=== PATIENT | male | born 1985 | race Hispanic/Latino ===

== ENCOUNTER 2024-06-05 10:42 | Inpatient (IN) | payer SELFPAY ==
[~2024-06-05 10:42] MED LIST: Iopamidol 300 61% 100 ML VIAL FS ONE
[2024-06-05] MEDS ORDERED: Ondansetron PF 4 MG/2 ML Vial ONE (12:26)
[2024-06-05] MEDS ORDERED: fentaNYL 50 mcg/mL 1 mL Vial ONE ×4 (12:26→16:26)
[2024-06-05 13:34] LABS: #Basophils 0.02 10x3/uL (0.0-0.2); #Eosinphils 0.08 10x3/uL (0.0-0.5); #Monocytes 0.39 10x3/uL (0.0-1.1); #Neutrophils 2.76 10x3/uL (1.5-8.4); %Basophils 0.5 % (0.0-2.0); %Eosinophils 1.9 % (0.0-6.0); %Lymphocytes 20.8 % (18.0-47.0); %Monocytes 9.4 % (0.0-10.0); %Neutrophils 66.7 % (40.0-75.0); Hematocrit 36.6 % (38.8-50.0); Hemoglobin 11.6 g/dL (13.5-17.5); Mean Corpuscular HGB CONC 31.7 g/dL (32.0-36.0); Mean Corpuscular Hemoglobin 23.8 pg (27.0-33.0); Mean Platelet Volume 9.8 fL (7.4-10.4); Platelet Count 206 10x3/uL (150-450); RBC Distribution Width 14.3 % (11.5-14.5); Red Blood Cell (RBC) Count 4.88 10x6/uL (4.32-5.72); White Blood Cell (WBC) Count 4.1 10x3/uL (3.5-10.5)
[2024-06-05 13:38] LABS: Bilirubin Neg (Negative); Blood, Urine Negative (Negative); Clarity Clear (Clear); Glucose, Urine (Dipstick) >=1000 mg/dL (Negative); Ketone, Urine Negative (Negative); Leukocyte Negative (Negative); Nitrite Negative (Negative); Protein, Urine (Dipstick) 30 mg/dl (Neg-Trace); Urobilinogen Normal mg/dL (Less than 2)
[2024-06-05 14:04] LABS: ALT (SGPT) 26 U/L (8-55); AST (SGOT) 20 U/L (5-34); Alkaline Phosphatase 102 U/L (40-110); Anion Gap 14 mmol/L (10-20); BUN (Urea Nitrogen) 9 mg/dL (8.9-20.6); Bilirubin, Total 0.4 mg/dL (0.2-1.2); Calc. Creatinine Clearance 0 mL/min (70-130); Calcium 9.2 mg/dL (7.8-10.44); Carbon Dioxide 21 mmol/L (22-29); Chloride 106 mmol/L (98-107); Estimated GFR 118; Globulin 3.1 g/dL (2.4-3.5); Glucose 380 mg/dL (70-105); Lipase 19 U/L (8-78); Magnesium 1.8 mg/dL (1.6-2.6); Potassium 4.2 mmol/L (3.5-5.1); Protein, Total 7.1 g/dL (6.0-8.3); Sodium 137 mmol/L (136-145)
[2024-06-05 14:16] LABS: Bacteria/HPF Rare-Few HPF (None Seen); CAUTI Indications for Culture Pelvic or flank pain; RBC/HPF 0-3 HPF (0-3); Squamous Epithelial None Seen HPF (0-3); Urine Culture Reflex No No; WBC/HPF 0-3 HPF (0-3)
[2024-06-05] MEDS ORDERED: Famotidine/PF 20 mg/2ml Vial ONE (15:05)
[2024-06-05 15:58] LABS: Actual Bicarbonate (HCO3v) 20.6 mEq/L (22-28); Analyzer IN Cardio CS ER; Base Excess -4.1 mEq/L (-2 - +2); Calcium, Ionized (venous) 1.13 mmol/L (1.16-1.32); Chloride (VBG) 105 mmol/L (98-106); Hematocrit-VBG 35 % (42.0-52.0); Hemoglobin (Hb) 11.8 g/dL (13.2-17.3); Puncture Site Other Site; RapidComm Collect By CBN; Sodium 139 mmol/L (133-146)
[2024-06-05] MEDS ORDERED: Pantoprazole 40 MG VIAL ONE (16:26)
[2024-06-05] MEDS ORDERED: Acetaminophen 650 MG Suppository PR PRN (17:57)
[2024-06-05] MEDS ORDERED: Ondansetron PF 4 MG/2 ML Vial IVP PRN (17:57)
[2024-06-05] MEDS ORDERED: Ondansetron ODT 4 MG TAB PO PRN (17:57)
[2024-06-05 19:45] VITALS: BMI 27.4
[2024-06-05] MEDS: fentaNYL 50 mcg/mL 1 mL Vial SLOW IVP PRN (20:28)
[2024-06-05] MEDS: Sodium Chloride 0.9% 1,000 ML IV SCH (20:29)
[2024-06-05] MEDS: Acetaminophen 325 MG TAB PO SCH (20:30)
[2024-06-05] MEDS: Pantoprazole 40 MG VIAL IVP SCH (20:30)
[2024-06-06] MEDS: FLU (Fluarix Triv) TS24-25(6MOS UP)/PF 45 MCG/0.5 ML Syringe IM ONE (02:30)
[2024-06-06 04:53] LABS: #Basophils 0.02 10x3/uL (0.0-0.2); #Eosinphils 0.07 10x3/uL (0.0-0.5); #Monocytes 0.36 10x3/uL (0.0-1.1); #Neutrophils 2.38 10x3/uL (1.5-8.4); %Basophils 0.5 % (0.0-2.0); %Eosinophils 1.8 % (0.0-6.0); %Lymphocytes 26.4 % (18.0-47.0); %Monocytes 9.3 % (0.0-10.0); %Neutrophils 61.5 % (40.0-75.0); Hematocrit 31.4 % (38.8-50.0); Hemoglobin 10.1 g/dL (13.5-17.5); Mean Corpuscular HGB CONC 32.2 g/dL (32.0-36.0); Mean Corpuscular Hemoglobin 23.9 pg (27.0-33.0); Mean Corpuscular Volume 74.4 fL (81.2-95.1); Mean Platelet Volume 10.1 fL (7.4-10.4); Platelet Count 188 10x3/uL (150-450); RBC Distribution Width 14.4 % (11.5-14.5); Red Blood Cell (RBC) Count 4.22 10x6/uL (4.32-5.72); White Blood Cell (WBC) Count 3.9 10x3/uL (3.5-10.5)
[2024-06-06 05:08] LABS: Magnesium 1.7 mg/dL (1.6-2.6)
[2024-06-06 05:23] LABS: Anion Gap 13 mmol/L (10-20); BUN (Urea Nitrogen) 5 mg/dL (8.9-20.6); Calc. Creatinine Clearance 192 mL/min (70-130); Calcium 8.3 mg/dL (7.8-10.44); Carbon Dioxide 19 mmol/L (22-29); Chloride 109 mmol/L (98-107); Estimated GFR 122; Glucose 277 mg/dL (70-105); Potassium 3.7 mmol/L (3.5-5.1); Sodium 137 mmol/L (136-145)
[2024-06-06 06:04] LABS: Microcytosis SLIGHT = 6-15 cells (100X) (0-5/hpf); Platelet Adequacy Comment Appears Adequate
[2024-06-06] MEDS ORDERED: fentaNYL 50 mcg/mL 1 mL Vial ONE ×3 (12:32→13:47)
[2024-06-06] MEDS ORDERED: Lidocaine 1% PF 5 ML VIAL ONE (12:50)
[2024-06-06] MEDS ORDERED: PROPOFOL 60 ML ONE (12:51)
[2024-06-06 13:42] LABS: Hemoglobin A1c 12.5 % (4.0-6.0)
[2024-06-06] MEDS ORDERED: Cyclobenzaprine 10 MG TAB PO PRN (16:48)
[2024-06-06 17:29] LABS: Hematocrit 35.9 % (38.8-50.0); Hemoglobin 11.6 g/dL (13.5-17.5)
[2024-06-06] MEDS ORDERED: Dextrose 50% Abboject 50 ML SYRINGE SLOW IVP PRN (18:59)
[2024-06-06] MEDS ORDERED: Glucagon 1 MG/ML KIT IM PRN (18:59)
[2024-06-06] MEDS ORDERED: Dextrose 5% in Water 1,000 ML IV PRN (18:59)
[2024-06-06] MEDS ORDERED: Insulin Regular, Human 100 UNIT/ML 10 ML VIAL SC PRN ×2 (18:59)
[2024-06-06] MEDS: GoLYTELY 4,000 ml Bottle PO SCH (20:09)
[2024-06-06] MEDS: Lidocaine 4% Patch TD SCH (20:10)
[2024-06-07 05:29] LABS: #Basophils 0.01 10x3/uL (0.0-0.2); #Eosinphils 0.06 10x3/uL (0.0-0.5); #Monocytes 0.55 10x3/uL (0.0-1.1); #Neutrophils 5.32 10x3/uL (1.5-8.4); %Basophils 0.1 % (0.0-2.0); %Eosinophils 0.9 % (0.0-6.0); %Lymphocytes 13.5 % (18.0-47.0); %Neutrophils 77.2 % (40.0-75.0); Hematocrit 33.1 % (38.8-50.0); Hemoglobin 10.6 g/dL (13.5-17.5); Mean Corpuscular Hemoglobin 23.8 pg (27.0-33.0); Mean Corpuscular Volume 74.2 fL (81.2-95.1); Mean Platelet Volume 9.7 fL (7.4-10.4); Platelet Count 179 10x3/uL (150-450); RBC Distribution Width 13.9 % (11.5-14.5); Red Blood Cell (RBC) Count 4.46 10x6/uL (4.32-5.72); White Blood Cell (WBC) Count 6.9 10x3/uL (3.5-10.5)
[2024-06-07 05:46] LABS: Anion Gap 13 mmol/L (10-20); BUN (Urea Nitrogen) 4 mg/dL (8.9-20.6); Calc. Creatinine Clearance 200 mL/min (70-130); Calcium 8.6 mg/dL (7.8-10.44); Carbon Dioxide 21 mmol/L (22-29); Chloride 106 mmol/L (98-107); Estimated GFR 124; Glucose 221 mg/dL (70-105); Potassium 3.4 mmol/L (3.5-5.1); Sodium 137 mmol/L (136-145)
[2024-06-07] MEDS: [UNRECOGNIZED DRUG - REMARK] TOP SCH (06:14)
[2024-06-07] MEDS: Pantoprazole DR 40 MG TAB PO SCH (09:27)
[2024-06-07] MEDS: Potassium Chloride 20 MEQ TAB PO SCH ×2 (09:27→18:05)
[2024-06-07] MEDS ORDERED: fentaNYL 50 mcg/mL 1 mL Vial ONE ×2 (15:41→18:14)
[2024-06-07] MEDS ORDERED: PROPOFOL 40 ML ONE (15:50)
[2024-06-07] MEDS ORDERED: Midazolam HCl 2 mg/2 ml Vial ONE (15:59)
[2024-06-07] MEDS ORDERED: PROPOFOL 20 ML ONE (17:48)
[2024-06-07] MEDS: Sodium Ferric Gluconate 250 MG in Sodium Chloride 0.9% 250 ML 250 ML IVPB SCH (18:55)
[2024-06-07] MEDS: fentaNYL 50 mcg/mL 1 mL Vial SLOW IVP SCH (21:13)
[2024-06-08 00:49] VITALS: TEMP 98
[2024-06-08] MEDS: fentaNYL 50 mcg/mL 1 mL Vial SLOW IVP SCH (01:56)
[2024-06-08 03:02] LABS: Bilirubin Neg (Negative); Blood, Urine Negative (Negative); Clarity Clear (Clear); Glucose, Urine (Dipstick) >=1000 mg/dL (Negative); Ketone, Urine 15 mg/dL (Negative); Leukocyte Negative (Negative); Nitrite Negative (Negative); Protein, Urine (Dipstick) 30 mg/dl (Neg-Trace); Urobilinogen Normal mg/dL (Less than 2); pH, Urine 6.5 (5.0-9.0)
[2024-06-08 03:20] LABS: Bacteria/HPF None Seen HPF (None Seen); RBC/HPF None Seen HPF (0-3); Squamous Epithelial None Seen HPF (0-3); WBC/HPF 0-3 HPF (0-3)
[2024-06-08 04:33] LABS: #Basophils 0.01 10x3/uL (0.0-0.2); #Eosinphils 0.08 10x3/uL (0.0-0.5); #Neutrophils 2.51 10x3/uL (1.5-8.4); %Basophils 0.3 % (0.0-2.0); %Eosinophils 2.1 % (0.0-6.0); %Lymphocytes 19.5 % (18.0-47.0); %Monocytes 10.7 % (0.0-10.0); %Neutrophils 66.9 % (40.0-75.0); Hematocrit 36.3 % (38.8-50.0); Hemoglobin 11.7 g/dL (13.5-17.5); Mean Corpuscular HGB CONC 32.2 g/dL (32.0-36.0); Mean Corpuscular Hemoglobin 24.1 pg (27.0-33.0); Mean Corpuscular Volume 74.7 fL (81.2-95.1); Mean Platelet Volume 10.6 fL (7.4-10.4); Platelet Count 207 10x3/uL (150-450); RBC Distribution Width 14.2 % (11.5-14.5); Red Blood Cell (RBC) Count 4.86 10x6/uL (4.32-5.72); White Blood Cell (WBC) Count 3.8 10x3/uL (3.5-10.5)
[2024-06-08 04:39] VITALS: BP 101/52
[2024-06-08 04:46] LABS: Anion Gap 16 mmol/L (10-20); BUN (Urea Nitrogen) 6 mg/dL (8.9-20.6); Calc. Creatinine Clearance 160 mL/min (70-130); Calcium 8.8 mg/dL (7.8-10.44); Carbon Dioxide 19 mmol/L (22-29); Chloride 105 mmol/L (98-107); Estimated GFR 115; Sodium 136 mmol/L (136-145)
[2024-06-08 04:50] LABS: Glucose 459 mg/dL (70-105)
[2024-06-08] MEDS: Insulin Regular, Human 100 UNIT/ML 10 ML VIAL IVP SCH (05:25)
[2024-06-08] MEDS ORDERED: glipiZIDE 5 MG TAB PO SCH (07:30)
[2024-06-08 11:24] LABS: Amphetamine Not Detected (NotDetected); Barbiturates Screen Not Detected (NotDetected); Benzodiazepine Screen Detected (NotDetected); Cocaine Metabolite Screen Not Detected (NotDetected); Methadone Not Detected (NotDetected); Methamphetamine Not Detected (NotDetected); Opiate Screen Not Detected (NotDetected); Oxycodone Screen Not Detected (NotDetected); Phencyclidine (PCP) Not Detected (NotDetected); THC/Cannabinoid Screen Not Detected (NotDetected); Tricyclic Screen Not Detected (NotDetected)
[2024-06-08] MEDS ORDERED: Sodium Ferric Gluconate 250 MG in Sodium Chloride 0.9% 250 ML 250 ML IVPB SCH (18:00)
== END 2024-06-08 06:30 | disposition left against medical advice (07) | DRG 378 ==
LOC: CSHERS 10:42 → CSHTELE 18:12
PROVIDERS: ADMIT Internal Medicine; ATTEND Family Medicine
PROC: 0DB38ZX Excision of Lower Esophagus, Via Natural or Artificial Opening Endoscopic, Diagnostic (ICD-10-PCS; principal; 2024-06-06)
PROC: 0DB68ZX Excision of Stomach, Via Natural or Artificial Opening Endoscopic, Diagnostic (ICD-10-PCS; 2024-06-06)
PROC: 0DJD8ZZ Inspection of Lower Intestinal Tract, Via Natural or Artificial Opening Endoscopic (ICD-10-PCS; 2024-06-07)
DX: K25.0 Acute gastric ulcer with hemorrhage (principal); D62 Acute posthemorrhagic anemia; N13.2 Hydronephrosis with renal and ureteral calculous obstruction; E87.20 Acidosis, unspecified; K92.0 Hematemesis; E11.65 Type 2 diabetes mellitus with hyperglycemia; D50.9 Iron deficiency anemia, unspecified; Z90.49 Acquired absence of other specified parts of digestive tract; Z90.79 Acquired absence of other genital organ(s); Z53.29 Procedure and treatment not carried out because of patient's decision for other reasons; Z91.199 Patient's noncompliance with other medical treatment and regimen due to unspecified reason
CPT/HCPCS: 36415; 36416; 74176; 74177; 80048; 80053; 80306; 81001; 82010; 82805; 83036; 83605; 83690; 83735; 84145; 85025; 86850; 86900; 86901; 87040; 88305; 93005; 94760; 94762; 96374; 96375; 96376; J1815; J2250; J2405; J2470; J2704; J2916; J3010; J3490; J7030; J7050; Q9967